=== PATIENT | female | born 1950 | race Caucasian/White ===

== ENCOUNTER → 2017-09-13 | Outpatient (CLI) | payer MEDICARE, BC ==
[~2017-09-13] MED LIST: 00186-0370-20 IH; AMITRIPTYLINE H10 M1 PO; EFFEXOR 75M75 MG/TAB PO; ESTRACE 1MG1 MG/TAB PO; LEVSIN0.125 M1 PO; PERCOCET 325 MG1 TA3 PO; RESTORIL 1515 MG/CAP PO; RT SPIRIVA18 MCG IH; TYLENOL W/COD1 UDTAB PO; VALIUM 10MG10 MG/TAB PO; ZOFRAN 4MG T4 MG/TAB PO; ZOLOFT 50MG50 MG PO
== END ==
LOC: COL.RAD 08:00
DX: R63.0 Anorexia (principal); R10.9 Unspecified abdominal pain; R01.1 Cardiac murmur, unspecified; R06.09 Other forms of dyspnea; G89.29 Other chronic pain
CPT/HCPCS: J7050; Q9967